=== PATIENT | female | born 1960 | race American Indian/Alaskan Native ===

== ENCOUNTER 2016-12-24 14:28 | Emergency (ER) | payer SELFPAY ==
[2016-12-24 14:39] VITALS: BP 124/86
[2016-12-24] MEDS ORDERED: ULTRAM PO ONE (16:58)
[2016-12-24] MEDS ORDERED: ULTRAM ONE (17:03)
[2016-12-24 17:35] LABS: Basophils % (Auto) 1.1 % (0.0-1.8); Eosinophils % (Auto) 4.7 % (0.0-4.3); Hematocrit 32.6 % (30.3-42.9); Hemoglobin 10.7 gm/dl (10.1-14.3); Mean Corpuscular HGB Conc 33 % (30-34); Mean Corpuscular Hemoglobin 28 pg (28-32); Mean Corpuscular Volume 86 fl (79-97); Platelet Count 414 K/mm3 (140-440); Red Blood Count 3.77 M/mm3 (3.65-5.03); Red Cell Distribution Width 14.8 % (13.2-15.2); White Blood Count 9.2 K/mm3 (4.5-11.0)
[2016-12-24 17:46] LABS: Anion Gap 20 mmol/L; BUN/Creatinine Ratio 19.09; Blood Urea Nitrogen 21 mg/dL (7-17); Calcium 9.4 mg/dL (8.4-10.2); Carbon Dioxide 26 mmol/L (22-30); Chloride 97.2 mmol/L (98-107); Creatine Kinase 110 units/L (30-135); Glucose 87 mg/dL (65-100); Potassium 4.8 mmol/L (3.6-5.0); Sodium 138 mmol/L (137-145)
--- NOTE | 2016-12-24 18:23 | Emergency Department Report ---
Entered by OLGA MANN, acting as scribe for LIZABETH BELTRAN NP. ED Lower Extremity HPI - General Chief Complaint: Extremity Problem,Nontraumatic Stated Complaint: SWOLLEN ANKLES Time Seen by Provider: 12/24/16 16:25 Source: patient, EMS Mode of arrival: Wheelchair Limitations: No Limitations - History of Present Illness Initial Comments: This is a 56 y/o female, nontoxic, well nourished in appearance, no acute signs of distress presents with left ankle swelling x 1 week. Associated symptoms include redness and pain but denies calf swelling, calf pain, numbness, tingling , headache, chest pain, shortness of breathe, wheezing, fever, chills, nausea and vomiting. Patient denies any trauma to the region. Symptoms are intermittent. Pain is described as 10/10 on a severity scale. Patient states she has experienced similar symptoms for about 2 years. Diagnosed with gout and cellulites. Patient stated has normal ROM. Denies having abnormal gait. Denies long car rides, recent travel or recent hospital visits. No alleviating or aggravating factors. Patient stated she wants to understand why she keeps getting this. 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 NKDA. PSHx right ankle 5 screws and left knee. MD Complaint: ankle injury (left) Onset/Timin -: week(s) Type of Injury: unknown Severity: severe Severity scale (0 -10): 10 Improves With: nothing Worsens With: nothing Associated Symptoms: swelling, ambulatory, other (redness, denies: calf swelling , calf pain, fever, chills, nausea and vomiting). denies: snap/pop sensation, numbness, tingling, unable to bear weight, able to partially bear weight - Related Data Previous Rx's Medication Instructions Recorded Last Taken Type Clindamycin [Clindamycin CAP] 450 mg PO Q8HR 7 Days 12/24/16 Unknown Rx Ibuprofen [Motrin 600 MG tab] 600 mg PO Q8H PRN #30 tablet 12/24/16 Unknown Rx traMADol [Ultram] 50 mg PO Q6HR PRN #14 tablet 12/24/16 Unknown Rx Allergies Allergy/AdvReac Type Severity Reaction Status Date / Time sulfamethoxazole Allergy Hives Verified 12/24/16 14:34 [From Bactrim] trimethoprim [From Bactrim] Allergy Hives Verified 12/24/16 14:34 ED Review of Systems Constitutional: denies: chills, fever Eyes: denies: eye pain, eye discharge, vision change ENT: denies: ear pain, throat pain Respiratory: denies: shortness of breath Cardiovascular: denies: chest pain Endocrine: no symptoms reported Gastrointestinal: denies: nausea, vomiting Genitourinary: denies: urgency, dysuria, discharge Musculoskeletal: denies: other (calf pain, calf swelling) Skin: other (pain, redness and swelling to left ankle/fischer) Neurological: denies: headache, weakness, paresthesias Psychiatric: denies: anxiety, depression Hematological/Lymphatic: denies: easy bleeding, easy bruising ED Past Medical Hx - Past Medical History Previous Medical History?: No - Surgical History Additional Surgical History: right ankle 5 screws, left knee - Social History Smoking Status: Current Every Day Smoker Substance Use Type: Alcohol - Medications Home Medications: Home Medications Medication Instructions Recorded Confirmed Last Taken Type Clindamycin [Clindamycin CAP] 450 mg PO Q8HR 7 Days 12/24/16 Unknown Rx Ibuprofen [Motrin 600 MG tab] 600 mg PO Q8H PRN #30 tablet 12/24/16 Unknown Rx traMADol [Ultram] 50 mg PO Q6HR PRN #14 tablet 12/24/16 Unknown Rx ED Physical Exam - General Limitations: No Limitations General appearance: alert, in no apparent distress - Head Head exam: Present: atraumatic, normocephalic, normal inspection - Eye Eye exam: Present: normal appearance, PERRL, EOMI. Absent: scleral icterus, conjunctival injection, nystagmus, periorbital swelling, periorbital tenderness Pupils: Present: normal accommodation - ENT ENT exam: Present: normal exam, normal orophraynx, mucous membranes moist, TM's normal bilaterally, normal external ear exam - Neck Neck exam: Present: normal inspection, full ROM. Absent: tenderness, meningismus, lymphadenopathy, thyromegaly - Respiratory Respiratory exam: Present: normal lung sounds bilaterally. Absent: respiratory distress, wheezes, rales, rhonchi, stridor - Cardiovascular Cardiovascular Exam: Present: regular rate, normal rhythm. Absent: bradycardia , tachycardia, irregular rhythm, normal heart sounds, systolic murmur, diastolic murmur, rubs, gallop - GI/Abdominal GI/Abdominal exam: Present: soft, normal bowel sounds. Absent: distended, tenderness, guarding, rebound, rigid, diminished bowel sounds - Rectal Rectal exam: Present: deferred - Extremities Exam Extremities exam: Present: normal inspection, full ROM, normal capillary refill. Absent: tenderness, pedal edema, joint swelling, calf tenderness - Expanded Lower Extremity Exam Left Hip exam: Present: normal inspection, full ROM, external rotation, internal rotation, pelvic stability. Absent: tenderness, swelling, abrasion, laceration , ecchymosis, deformity, crepidus, dislocation, erythema, shortening Upper Leg exam: Present: normal inspection, full ROM. Absent: tenderness, swelling, abrasion, laceration, ecchymosis, deformity, crepidus, dislocation, erythema Knee exam: Present: normal inspection, full ROM, full knee extension. Absent: tenderness, swelling, abrasion, laceration, ecchymosis, deformity, crepidus, dislocation, erythema, effusion, pain w/ pronation/supination, posterior draw sign, pain/laxity with varus Lower Leg exam: Present: normal inspection, full ROM, tenderness, erythema. Absent: swelling, abrasion, laceration, ecchymosis, deformity, crepidus, dislocation, palpable cord, Breanna's sign Ankle exam: Present: full ROM, tenderness, swelling, erythema. Absent: abrasion , laceration, ecchymosis, deformity, crepidus, dislocation, anterior draw sign Foot/Toe exam: Present: normal inspection, full ROM. Absent: tenderness, swelling, abrasion, laceration, ecchymosis, deformity, crepidus, dislocation, erythema, amputation, puncture wound, foreign body, calcaneal tenderness, tenderness at base of 5th metatarsal, nail avulsion, subungual hematoma Neuro vascular tendon exam: Present: no vascular compromise. Absent: pulse deficit, abnormal cap refill, motor deficit, sensory deficit, tendon deficit, extremity cold to touch, pallor, abnormal 2-point discrimination, decreased fine /light touch, foot drop, peroneal nerve deficit, significant pain with passive ROM of distal joint Gait: Positive: observed and normal 1 - Erythema, warmth to touch, and swelling, with tenderness to touch. - Back Exam Back exam: Present: normal inspection, full ROM. Absent: tenderness, CVA tenderness (R), CVA tenderness (L), muscle spasm, paraspinal tenderness, vertebral tenderness, rash noted - Neurological Exam Neurological exam: Present: alert, oriented X3, CN II-XII intact, normal gait, reflexes normal - Psychiatric Psychiatric exam: Present: normal affect, normal mood - Skin Skin exam: Present: warm (left fischer area), dry, intact, normal color. Absent: rash ED Course Vital Signs 12/24/16 14:34 Temperature 98.4 F Pulse Rate 70 Respiratory 18 Rate Blood Pressure 124/86 O2 Sat by Pulse 99 Oximetry - Reevaluation(s) Reevaluation #1: 12/24/16 17:08 Patient is speaking in full sentences but no signs of distress. ED Lower Extremity MDM - Medical Decision Making ED course; This is a 56-year-old female that presents with cellulitis to the left lower extremity 1- patient was examined myself. Patient is stable. CBC, BMP, lipase acid, BNP , CK has been obtained. Patient has been notified of the results with no further course noted by palpation. 2- patient is discharged with clindamycin and was instructed to follow-up and referred to a primary care doctor in 3-5 days or symptoms worsen and continue return to emergency room as soon as possible. 3- patient also received Ultram in the ED and was instructed not to operate any machinery at time of discharge due to sebaceous lab drowsiness. The patient's friend stated she was rather patient home. 4- At time time of discharge, the patient does not seem toxic or ill in appearance. No acute signs of distress noted. Patient agrees to discharge treatment plan of care. No further questions noted by the patient. ED Disposition Clinical Impression: Cellulitis Qualifiers: Site of cellulitis: unspecified site Qualified Code(s): L03.90 - Cellulitis, unspecified Disposition: - TO HOME OR SELFCARE Is pt being admited?: No Does the pt Need Aspirin: No Condition: Stable Instructions: Cellulitis (ED), Ibuprofen (By mouth), Clindamycin (By mouth) Additional Instructions: Follow-up with a primary care doctor in 3-5 days or if symptoms worsen and continue return to the Emergency Department as soon as possible. Prescriptions: Clindamycin [Clindamycin CAP] 450 mg PO Q8HR 7 Days Ibuprofen [Motrin 600 MG tab] 600 mg PO Q8H PRN #30 tablet PRN Reason: Pain traMADol [Ultram] 50 mg PO Q6HR PRN #14 tablet PRN Reason: Pain Referrals: PRIMARY CAREMD [Primary Care Provider] - 3-5 Days PETTY HERRERA MD [Staff Physician] - 3-5 Days [facility] [Outside] - 3-5 Days [facility] [Outside] - 3-5 Days Forms: Work/School Release Form(ED) This documentation as recorded by the JOHNATHAN yarbrough ELIZABETH,accurately reflects the service I personally performed and the decisions made by ,LIZABETH BELTRAN, AYAKA.
== END 2016-12-24 17:14 | disposition home or self-care (01) ==
LOC: ED 14:28
DX: L03.116 Cellulitis of left lower limb (principal); F17.200 Nicotine dependence, unspecified, uncomplicated; Z98.890 Other specified postprocedural states; Z88.1 Allergy status to other antibiotic agents
CPT/HCPCS: 36415; 80048; 82140; 82550; 83880; 85025

== ENCOUNTER 2017-01-16 21:30 | Emergency (ER) | payer OTHER ==
[2017-01-16] MEDS ORDERED: MOTRIN PO ONE ×2 (21:54→21:57)
--- NOTE | 2017-01-16 21:59 | Emergency Department Report ---
Chief Complaint: Extremity Injury, Lower Stated Complaint: FOOT INFECTION - HPI History of Present Illness: 56-year-old female past medical history frequent drinking, smoker, history of cellulitis presents with bilateral lower extremity swelling worsening 3 weeks. Patient states that she was given prescription for clindamycin but did not fill it and now states that she is having excruciating pain and very hot skin on both lower extremities. - ROS Review of Systems: History of cellulitis to both lower extremities - Exam Vital Signs: Vital Signs 01/16/17 01/16/17 21:34 21:39 Temperature 98.5 F 98.5 F Pulse Rate 90 89 Respiratory 18 18 Rate Blood Pressure 163/87 163/87 O2 Sat by Pulse 100 100 Oximetry Physical Exam: On physical exam patient has overt cellulitis to both lower extremities, significant tissue swelling to both distal tibial regions of both ankles with + 2 edema bilaterally. MSE screening note: Focused history and physical exam performed. Due to findings the following was ordered: Screening Assessment/Plan/Differential Dx: Likely bilateral lower extremity cellulitis/erythema/swelling worse on left than right 1- This initial assessment/diagnostic orders/clinical plan/ treatment(s) is/are subject to change based on pt's health status, clinical progression and re- assessment by fellow clinical providers in the ED. Further treatment and workup at subsequent clinical provers discretion. Patient/guardians urged not to elope from ED as their condition may be serious if not clinically assessed and managed. 2-patient states she did not take the prescription of clindamycin was given to her approximately 3 weeks ago and is now presenting with worsening pain swelling and erythema of both lower extremities worse on left and right 3-blood cultures, labs, CBC, x-rays, d-dimer (patient is complaining of calf tenderness as well) ED Disposition for MSE Condition: Stable
[2017-01-16 22:36] LABS: Basophils % (Auto) 0.7 % (0.0-1.8); Eosinophils % (Auto) 5.2 % (0.0-4.3); Hematocrit 32.1 % (30.3-42.9); Hemoglobin 10.4 gm/dl (10.1-14.3); Mean Corpuscular HGB Conc 32 % (30-34); Mean Corpuscular Hemoglobin 28 pg (28-32); Mean Corpuscular Volume 85 fl (79-97); Platelet Count 433 K/mm3 (140-440); Red Blood Count 3.76 M/mm3 (3.65-5.03); Red Cell Distribution Width 15.4 % (13.2-15.2); White Blood Count 8.6 K/mm3 (4.5-11.0)
[2017-01-16 22:54] LABS: C-Reactive Protein 2.5 mg/dL (0.00-1.30); Calcium 9.3 mg/dL (8.4-10.2); Chloride 97.7 mmol/L (98-107); Potassium 4.4 mmol/L (3.6-5.0)
[2017-01-16 23:05] LABS: Erythrocyte Sedimentation Rate 86 mm/Hr (0-20)
[2017-01-17] MEDS ORDERED: NORCO 7.5/325 PO ONE (04:50)
[2017-01-17] MEDS ORDERED: CLEOCIN 900 MG/50 mL 900 MG/50 ML BAG IV ONE (04:50)
--- NOTE | 2017-01-17 07:00 | Emergency Department Report ---
ED Extremity Problem HPI - General Chief complaint: Extremity Injury, Lower Stated complaint: FOOT INFECTION Source: patient Mode of arrival: Ambulatory Limitations: No Limitations - History of Present Illness Initial comments: 56 year old female presents to ED with bilateral lower leg swelling and redness and warmth x3-4 weeks (left worst than right). patient states she was diagnosed with cellulitis 3 weeks ago and never filled her prescription for clindamycin because it was too expensive. patient is stable, neurologically intact and in no acute distress. patient denies recent travel, recent surgery, hx of blood clots. patient has had labs and blood cultures ordered in triage prior to being seen by me. patient denies being diabetic. patient denies trauma, injury. MD Complaint: extremity swelling -: Gradual, week(s) (3) Location: bilateral lower extremity History of Same: Yes -: No myalgia, No fever, No associated dyspnea, No associated chest pain Radiation: none Quality: aching Consistency: constant Worsens with: weight bearing, walking Associated Symptoms: denies other symptoms, rash. denies: chest pain, shortness of breath, fever, myalgias, arthralgias - Related Data Previous Rx's Medication Instructions Recorded Last Taken Type Clindamycin [Clindamycin CAP] 450 mg PO Q8HR 7 Days 12/24/16 Unknown Rx Ibuprofen [Motrin 600 MG tab] 600 mg PO Q8H PRN #30 tablet 12/24/16 Unknown Rx traMADol [Ultram] 50 mg PO Q6HR PRN #14 tablet 12/24/16 Unknown Rx Cephalexin [Keflex] 500 mg PO Q12HR #14 cap 01/17/17 Unknown Rx Doxycycline [Vibramycin CAP] 100 mg PO Q12HR #14 capsule 01/17/17 Unknown Rx Allergies Allergy/AdvReac Type Severity Reaction Status Date / Time sulfamethoxazole Allergy Hives Verified 12/24/16 14:34 [From Bactrim] trimethoprim [From Bactrim] Allergy Hives Verified 12/24/16 14:34 ED Review of Systems ROS: Stated complaint: FOOT INFECTION Other details as noted in HPI Constitutional: denies: chills, fever Eyes: denies: eye pain, eye discharge, vision change ENT: denies: ear pain, throat pain Respiratory: denies: cough, shortness of breath, wheezing Cardiovascular: denies: chest pain, palpitations Endocrine: no symptoms reported Gastrointestinal: denies: abdominal pain, nausea, diarrhea Genitourinary: denies: urgency, dysuria, discharge Musculoskeletal: denies: back pain, joint swelling, arthralgia Skin: rash. denies: lesions Neurological: denies: headache, weakness, paresthesias Psychiatric: denies: anxiety, depression Hematological/Lymphatic: denies: easy bleeding, easy bruising ED Past Medical Hx - Past Medical History Previous Medical History?: No - Surgical History Past Surgical History?: Yes Additional Surgical History: right ankle 5 screws, left knee - Social History Smoking Status: Current Every Day Smoker Substance Use Type: Alcohol - Medications Home Medications: Home Medications Medication Instructions Recorded Confirmed Last Taken Type Clindamycin [Clindamycin CAP] 450 mg PO Q8HR 7 Days 12/24/16 Unknown Rx Ibuprofen [Motrin 600 MG tab] 600 mg PO Q8H PRN #30 tablet 12/24/16 Unknown Rx traMADol [Ultram] 50 mg PO Q6HR PRN #14 tablet 12/24/16 Unknown Rx Cephalexin [Keflex] 500 mg PO Q12HR #14 cap 01/17/17 Unknown Rx Doxycycline [Vibramycin CAP] 100 mg PO Q12HR #14 capsule 01/17/17 Unknown Rx ED Physical Exam - General Limitations: No Limitations General appearance: alert, in no apparent distress - Head Head exam: Present: atraumatic, normocephalic - Eye Eye exam: Present: normal appearance, EOMI - ENT ENT exam: Present: normal exam, mucous membranes moist - Neck Neck exam: Present: normal inspection, full ROM - Respiratory Respiratory exam: Present: normal lung sounds bilaterally. Absent: respiratory distress, wheezes, rales, chest wall tenderness - Cardiovascular Cardiovascular Exam: Present: regular rate, normal rhythm - GI/Abdominal GI/Abdominal exam: Present: soft, normal bowel sounds. Absent: distended, tenderness, guarding - Extremities Exam Extremities exam: Present: normal inspection, full ROM, tenderness (moderated tenderness to right and left anterior and posterior tib/fib), normal capillary refill, other (dorsalis pedis pulses intact bilaterally). Absent: pedal edema - Back Exam Back exam: Present: normal inspection - Neurological Exam Neurological exam: Present: alert, oriented X3 - Psychiatric Psychiatric exam: Present: normal affect, normal mood - Skin Skin exam: Present: warm, dry, intact, rash, erythema (left tib fib=7-8cm circumferential rash/erythema...right tib fib=4-5cm circumferential rash/ erythema). Absent: cyanosis, diaphoretic, ecchymosis ED Course Vital Signs 01/16/17 01/16/17 01/16/17 21:34 21:39 21:58 Temperature 98.5 F 98.5 F Pulse Rate 90 89 Respiratory 18 18 18 Rate Blood Pressure 163/87 163/87 Blood Pressure [Right] O2 Sat by Pulse 100 100 Oximetry 01/17/17 01/17/17 03:49 08:55 Temperature 98.3 F Pulse Rate 72 70 Respiratory 18 16 Rate Blood Pressure Blood Pressure 104/62 106/68 [Right] O2 Sat by Pulse 100 100 Oximetry ED Medical Decision Making - Lab Data Result diagrams: 01/16/17 22:21 01/16/17 22:21 Labs 01/16/17 01/16/17 01/16/17 22:21 22:21 22:21 WBC 8.6 RBC 3.76 Hgb 10.4 Hct 32.1 MCV 85 MCH 28 MCHC 32 RDW 15.4 H Plt Count 433 Lymph % (Auto) 20.3 Harmon % (Auto) 5.5 Eos % (Auto) 5.2 H Baso % (Auto) 0.7 Lymph # 1.7 Harmon # 0.5 Eos # 0.4 Baso # 0.1 Seg Neutrophils % 68.3 Seg Neutrophils # 5.9 ESR 86 Sodium 137 Potassium 4.4 Chloride 97.7 L Carbon Dioxide 27 Anion Gap 17 BUN 16 Creatinine 1.3 H Estimated GFR 51 BUN/Creatinine Ratio 12 Glucose 98 Lactic Acid 0.90 Calcium 9.3 C-Reactive Protein 2.50 H Plasma/Serum Alcohol 01/17/17 06:54 WBC RBC Hgb Hct MCV MCH MCHC RDW Plt Count Lymph % (Auto) Harmon % (Auto) Eos % (Auto) Baso % (Auto) Lymph # Harmon # Eos # Baso # Seg Neutrophils % Seg Neutrophils # ESR Sodium Potassium Chloride Carbon Dioxide Anion Gap BUN Creatinine Estimated GFR BUN/Creatinine Ratio Glucose Lactic Acid Calcium C-Reactive Protein Plasma/Serum Alcohol < 0.01 - Radiology Data Radiology results: report reviewed XR tib/fib bilateral No evidence of osseous destruction or abnormal soft tissue. - Medical Decision Making 56 year old female presents to ED with bilateral lower leg cellulitis x3-4 weeks. patient has never picked up RX for antibiotics and states she would like a different antibiotic because clindamycin was too expensive. patient has been given an RX for keflex and doxycycline and was given [employer] coupon during ED visit. patient is stable, neurologically intact and in no acute distress. patient has been given IV dose of clindamycin during ED visit. patient has also been given outpatient DVT ultrasound order to be filled within 24 hours. patient understands and agrees to have prescriptions and ultrasound order filled immediately. patient also understands she needs to return to ED within 48 hours for recheck of cellulitis. Critical care attestation.: If time is entered above; I have spent that time in minutes in the direct care of this critically ill patient, excluding procedure time. ED Disposition Clinical Impression: Cellulitis of right lower leg Cellulitis Qualifiers: Site of cellulitis: extremity Site of cellulitis of extremity: lower extremity Laterality: left Qualified Code(s): L03.116 - Cellulitis of left lower limb Disposition: DC-01 TO HOME OR SELFCARE Is pt being admited?: No Does the pt Need Aspirin: No Condition: Stable Instructions: Cellulitis (ED) Additional Instructions: Please return to ED within 2-3 days for recheck. Return to ED immediately if symptoms worsen Prescriptions: Cephalexin [Keflex] 500 mg PO Q12HR #14 cap Doxycycline [Vibramycin CAP] 100 mg PO Q12HR #14 capsule Referrals: PRIMARY CARE, [Primary Care Provider] - 2-3 Days Forms: Work/School Release Form(ED)
--- NOTE | 2017-01-17 07:55 | XRay Report ---
FINAL REPORT EXAM: XR TIB/FIB BILAT 2V HISTORY: severe tissue swelling b/l shins distally COMPARISONS: None. FINDINGS: AP and lateral views of the right and left tib fib Right tibia and fibula appear intact. Distal right fibular plate and screw fixation. No displaced fracture. No abnormal soft tissue calcification. Posterior cortical graying involving the left tibia and fibula diaphysis. No periosteal reaction or abnormal soft tissue calcification. IMPRESSION: Cortical graying involving the posterior left tibia and fibula diaphysis may be artifactual or secondary to minimally displaced fracture. No other evidence of osseous destruction or abnormal soft tissue calcification the right or left leg. If there is concern for left tib fib fracture, CT or MRI is recommended.
[2017-01-17 08:56] VITALS: BP 106/68
== END 2017-01-17 08:55 | disposition home or self-care (01) ==
LOC: ED 21:30
DX: L03.116 Cellulitis of left lower limb (principal); L03.115 Cellulitis of right lower limb; F17.200 Nicotine dependence, unspecified, uncomplicated; Z88.1 Allergy status to other antibiotic agents
CPT/HCPCS: 36415; 73590; 80048; 82140; 85025; 85652; 86140; 87040; 96365; 99284; G0480; 80320